=== PATIENT | male | born 1955 | race African-American/Black ===

== ENCOUNTER 2018-04-02 07:30 | Outpatient (RCR) | payer OTHER | END 2018-06-15 | disposition home or self-care (01) | LOC: WSPT | DX: R42 Dizziness and giddiness (principal); Z72.0 Tobacco use; Z79.899 Other long term (current) drug therapy; Z79.891 Long term (current) use of opiate analgesic ==

== ENCOUNTER 2019-01-14 09:45 | Outpatient (RCR) | payer OTHER | END 2019-02-17 13:15 | disposition home or self-care (01) | LOC: WSPT 09:45 | DX: H81.10 Benign paroxysmal vertigo, unspecified ear (principal) ==